=== PATIENT | female | born 1985 | race Caucasian/White ===

== ENCOUNTER → 2018-11-21 23:50 | Outpatient (CLI) | payer OTHER, SELFPAY ==
[2018-11-21 18:01] VITALS: BMI 28.9
[2018-11-24 10:28] LABS: HPV Reflexed? NOT INDICATED
--- OUTSIDE RECORDS SUMMARY | 2019-01-24 05:49 | XMS RPT_ITS ---
:1985 Author Organization [facility] Care Team Providers Name Role Phone Judi Albarran PHOTOGRAPHER SCIENTIFIC-C Attending Unavailable Judi Albarran PHOTOGRAPHER SCIENTIFIC-Feroz Referring Unavailable PROBLEMS PROBLEMS DATE TYPE CONDITION / CODE ATTENDING STATUS SOURCE 11/22/2018 Unknown Z01.419 - Encounter Raul Albarran for gynecological Judi PHOTOGRAPHER SCIENTIFIC-Feroz [facility] (general) (routine) Repository without abnormal findings / Z01.419(ICD-10) PROCEDURES PROCEDURES No Procedure Records FoundRESULTS RESULTS OFFICE VISIT Observed: 11/21/2018 Status: F Source: IGLES[place] 8:22 PM [facility] [address] [place] [address] OFFICE VISIT Date of Service: 11/21/18 MR#: [id number] Acct: [id number] Name: EDWIN BEARD Rep #: [id number] : 1985 Provider: AHMET Albarran Age/Sex: 33/F Location: [facility] Status: Signed Intake Vital Signs11/21/18 Height 5 ft 2 in 11/21/18 Weight: 158 lb Intake Visit Reasons: RX REFILLS Allergies No Known Allergies Allergy (Unverified 08/22/18 20:38) Medications alprazolam 0.25 mg tablet 0.25 mg PO BID-TID PRN 08/22/18 [History Confirmed 08/22/18] amoxicillin 875 mg-potassium clavulanate 125 mg tablet 1 tab PO BID #20 tab 08/22/18 [Rx Confirmed 08/22/18] cyanocobalamin (vit B-12) 1,000 mcg/mL injection kit 100 mcg IM QMONTH 08/22/18 [History Confirmed 08/22/18] lisdexamfetamine 30 mg capsule 30 mg PO DAILY 08/22/18 [History Confirmed 08/22/18] L norgest/E estradiol-E estrad 0.10 mg-20 mcg (84)/10 mcg(7) tabs,3mos 1 tab PO DAILY #91 tab 11/21/18 [Rx Confirmed 11/21/18] montelukast 10 mg tablet 10 mg PO QPM #90 tab 11/21/18 [Rx Confirmed 11/21/18] PFSH Medical History ADD (attention deficit disorder) (Acute) Anxiety (Acute) Fractured nose (Acute) Kidney stone (Acute) Seasonal allergies (Acute) insulin resistance low lood sugar (Acute) Surgical History H/O nasal septoplasty (Acute) [place] teeth removed (Acute) cyst removed from eyebrow (Acute) HPI HPI (General) HPI HPI: EDWIN BEARD, is a 33 F who presents to the office today for medication refill for BCP Requires a pap last was 2 years ago NOt been sexually active and has no concerns ROS Const Constitutional: No anorexia, body ache, chills, excessive sweating, fatigue, fever(s), frequent falls, headache(s), decreased energy, malaise, night sweats, snoring, weakness, weight change, sleep problems, abnormal sleep pattern, change in appetite or other Eyes Eyes: No blurry vision, change in vision, double vision, discharge, dry eyes, bulging eyes, floaters, visual disturbances, eye pain, light sensitivity, spots in vision, tunnel vision or other ENT ENT: No headache(s), abnormal hearing, ear pain, ear discharge, ear pressure, hearing loss, tinnitus, dizziness/vertigo, balance problems, nosebleed/epistaxis, nasal congestion, nasal obstruction, nose pain, sinus pressure, sinus pain, nasal discharge, post nasal drip, facial pain, dental pain, dry mouth, difficulty swallowing, bad breath, hoarseness, lip swelling, mouth lesions, mouth pain, neck pain, sore throat, tongue swelling, throat swelling or other Resp Respiratory: No snoring, cough, change in phlegm color, chest congestion, excessive phlegm production, hemoptysis, pain on inspiration, shortness of breath, pain with cough, stridor, wheezing or other Cardio Cardiology: No excessive sweating, chest pain at rest, chest pain with exertion, leg pain with exertion, shortness of breath, dyspnea on exertion, generalized swelling, irregular heart rhythm, lightheadedness, orthopnea, radiating jaw, neck or arm pain, fast heart rate, slow heart rate, palpitations or other Gastro GI: No other, No Difficulty Swallowing, No abdominal pain, No belching, No bloating, No change in bowel habits, No change in stool character, No coffee ground emesis, No constipation, No cramping, No diarrhea, No heartburn, No feeling full early, No excessive flatus, No incontinent of stools, No Vomiting blood/hematemesis, No Blood in stool, No loose stools, No Black,tarry stools, No nausea/dyspepsia, No pain with swallowing, No vomiting, No hemorrhoids, No rectal pain Genitourinary: No urinary frequency, difficulty urinating, burning urination, painful urination, urinary urgency or blood in urine Musc Musculoskeletal: No neck pain, abnormal walking, joint pain, back pain, deformity, joint swelling, limited range of motion, loss of height, muscle cramps, muscle weakness, decreased muscle mass, body aches, numbness, radiating pain into limb, stiffness, tingling or other Skin Skin: No acne, hair loss, change in hair, nail changes, boil, change in skin color, dry skin, redness, excessive hair growth, yellowing of the skin, lesions, itching, rash, skin pain, skin ulcer, sores, skin swelling, wounds or other Breast Breast: No other Neuro Neurology: No frequent falls, headache(s), weakness, visual disturbances, abnormal hearing, abnormal walking, numbness, tingling, abnormal movements, abnormal speech, behavioral changes, confusion, unsteady gait/balance, dizziness, lack of coordination, loss of vision, memory loss, restless legs, fainting, tremor(s) or other Psych Psychiatric: No abnormal sleep pattern, No change in appetite, No behavioral changes, No confusion, No memory loss, No lack of enjoyment, No anxiety, No depression, No difficulty concentrating, No hopelessness, No irritability, No mood swings, No panic attacks, No paranoia, No Thoughts of harming yourself/Others, No hallucinations, No other Endo Endo: No excessive sweating, No fatigue, No other Aller/Imm Allergy/Immunologic: No lip swelling, tongue swelling, throat swelling, wheezing or itchy eyes Exam Const Constitutional: Yes cooperative, Yes healthy appearing Orientation: Yes alert, awake and oriented x3 HENMT Head: Yes normocephalic Ear: Yes hearing grossly normal bilaterally Neck Neck: normal visual inspection Thyroid: thyroid normal Eyes General: Yes appearance normal, both eyes and all related structures Chest Chest palpation AND inspection: Yes normal inspection of the chest Resp Effort AND Inspection: No stridor Auscultation: Yes clear to auscultation bilaterally Cardio Palpitation: Yes normal PMI Rate: Yes regular rate Rhythm: Yes regular rhythm GI Inspection: Yes normal to inspection Auscultation: Yes normal bowel sounds Rectal Exam: No hemorrhoids General: Yes bladder normal to inspection External Female Exam: normal external appearance, normal appearance of the urethra Urethra: normal appearance of the urethra Speculum Exam - Vagina: normal appearance of the vagina Speculum Exam - Cervix: normal appearance of the cervix, closed cervix Bimanual Exam- Vagina AND Uterus: normal bimanual exam Bimanual Exam- Adnexa, other: pelvic support normal Pelvic Support: normal Musc Cervical Spine: Yes cervical ROM normal Thoracic/Lumbar Spine: Yes thoracic and lumbar spine normal to inspection Skin General: no rashes or lesions noted Lesions: Yes no lesions Extrem General: Yes normal to inspection Neuro General: Yes alert and oriented x3 Motor: No weakness Psych Appearance: Positive grossly normal Mood: Positive congruent mood Affect: Positive normal affect Assessment AND Plan Problems 1. Well woman exam with routine gynecological exam Z01.419 Patient Instructions follow up as needed Will call with the results Orders Orders: Medications Refilled: Coding Level of Care Code Off vis,est,level 3 Diagnoses Well woman exam with routine gynecological exam Z01.419 11/21/182021 <Electronically signed by Judi NAIR> Date Judi NAIR CC: PAP I-G W/ REFLEX Collected: 11/21/2018 Status: F Source: IGLESIA TO HR HPV 6:20 PM [facility] REPOS[facility]ORY Order Comment: CYTOLOGY INFORMATION: - CLINICAL INFORMATION: - DATE LMP/MENOPAUSE: - COLLECTION VIAL: Thin Prep Vial - BUSINESS CONTINUITY MANAGER SOURCE: CERVICAL/ENDOCERVICAL - COLLECTION TECHNIQUE: BRUSH/SPATULA Specimen Comment: [id number] Specimen Comment: Source.............Cervix;Endocervix Specimen Comment: No. of containers..01 ThinPrep Vial TYPE CODE TESTS RESULT OUT OF RANGE REFERENCE UNITS LAB L7400.0800 . Normal DIAGN Comment Result Comment: NEGATIVE FOR INTRAEPITHELIAL LESION OR MALIGNANCY. LAB L7400.0900 . Normal ADEQ Comment Result Comment: Satisfactory for evaluation. Endocervical and/or squamous metaplastic cells (endocervical component) are present. Areas of partially obscuring blood are present. LAB L7400.1400 . Normal PERFORM Comment Result Comment: Trent Gross, Experience Specialist (ASCP) LAB L7400.2575 . Normal TEST METHOD Comment Result Comment: This liquid based ThinPrep(R) pap test was screened with the use of an image guided system. LAB L7400.2600 . Normal . COMM LAB L7400.2700 . Normal PAPSMR Comment Result Comment: The Pap smear is a screening test designed to aid in the detection of premalignant and malignant conditions of the uterine cervix. It is not a diagnostic procedure and should not be used as the sole means of detecting cervical cancer. Both false-positive and false-negative reports do occur. LAB L7400.2800 . Normal HPV RFLX Comment Result Comment: The HPV DNA reflex criteria were not met with this specimen result therefore, no HPV testing was performed. Performed at: - [address] [id number] [place] Manager: Hamida Harvey MD, Phone: [phone] Performed By: #### L7400.0355 #### [facility] (refer to report for specific site) refer to report for address and phone number OFFICE VISIT Observed: 08/24/2018 Status: F Source: I[place] 12:39 PM [facility] [place] [address] [place] [address] OFFICE VISIT Date of Service: 08/22/18 MR#: [id number] Acct: [id number] Name: EDWIN BEARD Rep #: [id number] : 1985 Provider: AHMET Albarran Age/Sex: 32/F Location: [facility] Status: Signed Intake Vital Signs08/22/18 Height 5 ft 2 in 08/22/18 Weight: 158 lb Intake Visit Reasons: COLD Allergies No Known Allergies Allergy (Unverified 08/22/18 20:38) Medications L norgest/E estradiol-E estrad 0.10 mg-20 mcg (84)/10 mcg(7) tabs,3mos 1 tab PO DAILY #91 tab 08/22/18 [Rx Confirmed 08/22/18] alprazolam 0.25 mg tablet 0.25 mg PO BID-TID PRN 08/22/18 [History Confirmed 08/22/18] amoxicillin 875 mg-potassium clavulanate 125 mg tablet 1 tab PO BID #20 tab 08/22/18 [Rx Confirmed 08/22/18] cyanocobalamin (vit B-12) 1,000 mcg/mL injection kit 100 mcg IM QMONTH 08/22/18 [History Confirmed 08/22/18] lisdexamfetamine 30 mg capsule 30 mg PO DAILY 08/22/18 [History Confirmed 08/22/18] montelukast 10 mg tablet 10 mg PO QPM #90 tab 08/22/18 [Rx Confirmed 08/22/18] PFSH Medical History ADD (attention deficit disorder) (Acute) Anxiety (Acute) Fractured nose (Acute) Kidney stone (Acute) Seasonal allergies (Acute) insulin resistance low lood sugar (Acute) Surgical History H/O nasal septoplasty (Acute) [place] teeth removed (Acute) cyst removed from eyebrow (Acute) HPI HPI (General) HPI HPI: EDWIN BEARD, is a 32 F who presents to the office today for URI symptoms . Nose running like a water fall today , yesterday started sneezing, waking up last night with a ST and that is how I got strep last year and was really sick . 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 Not missed work yet but wants off tomorrow to sleep. ROS Const Constitutional: Positive for headache(s), fatigue and decreased energy Eyes Eyes: Positive for discharge ENT ENT: Positive for headache(s), ear pain, balance problems, dizziness/vertigo, nasal discharge (clear), post nasal drip and neck pain Gastro GI: Yes abdominal pain, Yes nausea/dyspepsia, Yes diarrhea Musc Musculoskeletal: Positive for neck pain and back pain Neuro Neurology: Positive for headache(s) Endo Endo: Yes fatigue Exam Const Constitutional: Yes cooperative, Yes ill appearing Nutritional Appearance: Yes average body habitus Orientation: Yes oriented x3 HENMI Head: Yes normocephalic Ear: Yes hearing grossly normal bilaterally TM-Right: normal TM-Left: normal Pinna-Right: within normal limits Pinna-Left: within normal limits Face: Yes normal facial exam Nose: Yes no nasal discharge Mouth: Yes oral mucosae normal Teeth and Gingiva: Yes dentition normal Throat: Yes posterior oropharynx normal, Yes redness, Yes swollen Neck Neck: normal visual inspection Lymphadenopathy: Yes cervical Eyes General: Yes appearance normal, both eyes and all related structures Resp Effort AND Inspection: Yes normal respiratory effort Auscultation: Yes clear to auscultation bilaterally Cardio Palpitation: Yes normal PMI Rate: Yes regular rate Rhythm: Yes regular rhythm GI Palpation: Yes soft and no hepatosplenomegaly Musc Cervical Spine: Yes cervical ROM normal Thoracic/Lumbar Spine: Yes thoracic and lumbar spine normal to inspection Extrem General: Yes normal to inspection Neuro General: Yes oriented x3 Psych Mood: Positive congruent mood Assessment AND Plan Problems 1. Pharyngitis, unspecified etiology J02.9 2. Acute non-recurrent maxillary sinusitis J01.00 Patient Instructions Take the antibiotics till gone with food or after eating If not getting results from [facility] then call push the fluids off work tomorow follow up as needed Medications New: Coding Level of Care Code Off vis,est,level 3 Diagnoses Pharyngitis, unspecified etiology J02.9 Pharyngitis/tonsillitis etiology: unspecified etiology Acute non-recurrent maxillary sinusitis J01.00 Chronicity: acute Recurrence: non-recurrent 08/24/18 1239 <Electronically signed by Judi NAIR> Date Judi NAIR CC: ALLERGIES ALLERGIES DATE TYPE / CODE NAME / CODE REACTION SEVERITY SOURCE 08/22/2018 Drug No Known Unknown [place] [facility] Allergy/4160 Allergies/F00 [facility] 28596(SNOMED [id number](RXNOR Repository CT) M) ENCOUNTERS ENCOUNTERS ADMIT/DISCHARGE ACCOUNT ADMITTING ENCOUNTER LOCATION SOURCE NUMBER CLASS 11/21/2018 [id number] Ambulatory [place] [facility] ing:[facility] Repository PAYERS PAYERS ENCOUNTER GUARANTOR PAYER SUBSCRIBER SOURCE 11/21/2018 EDWIN C Primary EDWIN C [place] [id number] Insurance:MEDICAL SHIMANDLEDOB: [facility] [id number] Number: Repository [address]Mbs: [phone] [id number] [phone] () Date:[id number] [address] [place] [id number]: 11/21/2018 Secondary NOT GIVENUNK [place] Insurance:SELF PAY [facility] Number: Effective Repository Date:2018-11-21
== END ==
PROVIDERS: Referring Provider Nurse Practitioner; Visit Provider Nurse Practitioner
DX: Z01.419 Encounter for gynecological examination (general) (routine) without abnormal findings (principal)
CPT/HCPCS: 88175; G0145

== ENCOUNTER → 2020-09-04 | Outpatient (CLI) | payer OTHER, SELFPAY ==
[2020-09-04 15:37] VITALS: BMI 26.6
[2020-09-04 22:16] LABS: AST(SGOT) 10 U/L (15-37); Alanine Aminotransfer ALT/SGPT 19 U/L (13-56); Albumin, Serum 4.2 g/dL (3.2-5.0); Alkaline Phosphatase 89 U/L (45-117); Anion Gap 6 (5-15); BUN 9 mg/dL (7-18); BUN/Creat Ratio 9.8 RATIO (10-20); Calcium,Total 9.1 mg/dL (8.5-10.1); Chloride 105 mmol/L (98-107); Creatinine, Serum 0.92 mg/dL (0.55-1.02); EST Glomerular Filtration Rate 74 mL/min (>60); Est Glom Filt Rate - Afr Amer 90 mL/min (>60); Globulin 4.1 g/dL (2.2-4.2); Glucose 77 mg/dL (74-106); Potassium 3.4 mmol/L (3.5-5.1); Protein, Total 8.3 g/dL (6.4-8.2); Sodium Level 139 mmol/L (136-145)
[2020-09-04 22:18] LABS: Absolute Lymphocyte Count 3.27 X10^3/uL (0.83-4.51); Absolute Neutrophil Count 4.5 X10^3/uL (2.0-7.7); Basophil# 0.05 X10^3/uL; Basophil% 0.6 % (0-1); Eosinophil# 0.11 X10^3/uL; Eosinophils% 1.2 % (0-5); Hematocrit 39.8 % (37-47); Hemoglobin 13.1 g/dL (12.0-15.0); Lymphocyte # 3.27 X10^3/ul (4.0); Lymphocyte % 36.7 % (19-41); Mean Corp Hgb Conc 32.9 g/dL (32-36); Mean Corpuscular Hgb 30.3 pg (27.0-32.0); Mean Corpuscular Volume 92.1 fL (81-99); Mean Platelet Vol. 10.8 fl (6.2-12.0); Monocyte# 0.91 X10^3/uL; Monocyte% 10.2 % (0-10); NRBC Flagged by Analyzer 0 % (0-5); Neutrophil # 4.54 X10^3/uL (2.7-7.7); Neutrophil % 51.1 % (47-70); Platelet Count 349 K/mm3 (150-450); RBC Distribution Width CV 12.6 % (11.6-14.6); RBC Distribution Width SD 42.5 fl (35.1-43.9); Red Blood Count 4.32 M/mm3 (4.2-5.4); White Blood Count 8.9 K/mm3 (4.4-11.0)
[2020-09-05 13:50] LABS: Vitamin B12 508 pg/mL (211-911)
[2020-09-10 09:10] LABS: Vitamin D 1,25-Dihydroxy 53.9 pg/mL (19.9-79.3)
[2020-09-10 22:06] LABS: HPV Reflexed? NOT INDICATED
== END | disposition home or self-care (01) ==
PROVIDERS: Nurse Practitioner
DX: Z01.419 Encounter for gynecological examination (general) (routine) without abnormal findings (principal); E55.9 Vitamin D deficiency, unspecified; R53.83 Other fatigue
CPT/HCPCS: 80053; 82607; 82652; 85025; 87491; 87591; 88175; G0145

== ENCOUNTER 2021-12-22 21:59 | Outpatient (CLI) | payer OTHER, SELFPAY ==
[2021-12-31 20:00] LABS: HPV Reflexed? YES, CHARGE PATIENT
== END 2021-12-22 23:59 | disposition home or self-care (01) ==
PROVIDERS: Visit Provider Nurse Practitioner
DX: Z01.419 Encounter for gynecological examination (general) (routine) without abnormal findings (principal)
CPT/HCPCS: 87624; 88175; G0145